=== PATIENT | female | born 1935 | race Caucasian/White ===

== ENCOUNTER 2022-04-16 17:00 | Emergency (ER) | payer MEDICARE, OTHER ==
[2022-04-16 18:12] LABS: #Eosinphils 0.2 thou/uL (0.0-0.7); #Lymphocytes 1.6 thou/uL (1.20-3.40); #Monocytes 0.8 thou/uL (0.11-0.59); #Neutrophils 7.4 thou/uL (1.40-6.50); %Basophils 0.1 % (0.0-1.0); %Eosinophils 2.3 % (0.0-10.0); %Lymphocytes 15.8 % (21.0-51.0); %Neutrophils 73.9 % (42.0-75.0); Hemoglobin 14.3 g/dL (12.0-16.0); Mean Corpuscular HGB CONC 33.1 g/dL (32.0-36.0); Mean Corpuscular Hemoglobin 31.4 pg (27.0-31.0); Mean Platelet Volume 8.7 fL (7.4-10.4); Platelet Count 155 thou/uL (130-400); Red Blood Cell (RBC) Count 4.55 mill/uL (4.20-5.40)
[2022-04-16 18:29] LABS: ALT (SGPT) 23 U/L (8-55); AST (SGOT) 23 U/L (5-34); Albumin 3.9 g/dL (3.4-4.8); Alkaline Phosphatase 71 U/L (40-110); Anion Gap 21 mmol/L (10-20); BUN (Urea Nitrogen) 35 mg/dL (9.8-20.1); Bilirubin, Total 0.5 mg/dL (0.2-1.2); CK (CPK) 83 U/L (29-168); Calc. Creatinine Clearance 0 mL/min (70-130); Calcium 8.8 mg/dL (7.8-10.44); Carbon Dioxide 16 mmol/L (23-31); Chloride 107 mmol/L (98-107); Estimated GFR 33; Globulin 2.7 g/dL (2.4-3.5); Glucose 192 mg/dL (83-110); Potassium 3.6 mmol/L (3.5-5.1); Protein, Total 6.6 g/dL (5.8-8.1); Sodium 140 mmol/L (136-145)
[2022-04-16 18:50] LABS: SARS-CoV-2 NAA Rapid Test Not Detected (NotDetected)
[2022-04-16 20:25] LABS: Bacteria/HPF 4+ HPF (None Seen); Bilirubin Negative (Negative); Blood, Urine 1+ (Negative); Clarity Turbid (Clear); Glucose, Urine (Dipstick) Normal (Negative); Ketone, Urine Negative (Negative); Leukocyte 500 Leu/uL (Negative); Nitrite Negative (Negative); Protein, Urine (Dipstick) Negative (Neg-Trace); Specific Gravity, Urine 1.016 (1.002-1.036); Squamous Epithelial None Seen HPF (0-3); Urobilinogen Normal mg/dL (Less than 2); WBC/HPF Greater than 50 HPF (0-3); pH, Urine 5.5 (5.0-9.0)
== END 2022-04-16 21:23 ==
LOC: ERS 17:00
DX: S01.01XA Laceration without foreign body of scalp, initial encounter (principal); N39.0 Urinary tract infection, site not specified; I10 Essential (primary) hypertension; W19.XXXA Unspecified fall, initial encounter; Z79.899 Other long term (current) drug therapy
CPT/HCPCS: 12002; 70450; 71045; 80053; 82550; 83605; 84484; 85025; 93005; 99285; U0002; 36415; 81003; 81015

== ENCOUNTER 2022-05-30 15:01 | Emergency (ER) | payer OTHER | END 2022-05-30 17:05 | LOC: ERS 15:01 | DX: S12.600A Unspecified displaced fracture of seventh cervical vertebra, initial encounter for closed fracture (principal); S06.5X0A Traumatic subdural hemorrhage without loss of consciousness, initial encounter; S40.812A Abrasion of left upper arm, initial encounter; I10 Essential (primary) hypertension; E03.9 Hypothyroidism, unspecified; G30.9 Alzheimer's disease, unspecified; F02.80 Dementia in other diseases classified elsewhere, unspecified severity, without behavioral disturbance, psychotic disturbance, mood disturbance, and anxiety; W19.XXXA Unspecified fall, initial encounter; Z95.5 Presence of coronary angioplasty implant and graft; Z79.899 Other long term (current) drug therapy | CPT/HCPCS: 70450; 72125 ==

== ENCOUNTER 2022-08-27 11:41 | Inpatient (IN) | payer OTHER, MEDICAID ==
[2022-08-27 12:20] LABS: #Monocytes 0.8 thou/uL (0.11-0.59); #Neutrophils 14.1 thou/uL (1.40-6.50); %Basophils 0.1 % (0.0-1.0); %Eosinophils 0.2 % (0.0-10.0); %Lymphocytes 6.2 % (21.0-51.0); %Monocytes 4.9 % (0.0-10.0); %Neutrophils 88.6 % (42.0-75.0); Hemoglobin 14.7 g/dL (12.0-16.0); Mean Corpuscular HGB CONC 32.9 g/dL (32.0-36.0); Mean Corpuscular Hemoglobin 30.9 pg (27.0-31.0); Mean Corpuscular Volume 93.9 fl (78.0-98.0); Mean Platelet Volume 8.9 fL (7.4-10.4); Platelet Count 200 10x3/uL (130-400); RBC Distribution Width 11.9 % (11.5-14.5); Red Blood Cell (RBC) Count 4.76 mill/uL (4.20-5.40); White Blood Cell (WBC) Count 15.9 10x3/uL (4.8-10.8)
[2022-08-27 12:36] LABS: ALT (SGPT) 32 U/L (8-55); AST (SGOT) 33 U/L (5-34); Albumin 4.3 g/dL (3.4-4.8); Alkaline Phosphatase 69 U/L (40-110); Anion Gap 15 mmol/L (10-20); BUN (Urea Nitrogen) 20 mg/dL (9.8-20.1); Bilirubin, Total 1.1 mg/dL (0.2-1.2); Calc. Creatinine Clearance 0 mL/min (70-130); Calcium 9.2 mg/dL (7.8-10.44); Carbon Dioxide 27 mmol/L (23-31); Chloride 104 mmol/L (98-107); Estimated GFR 59; Globulin 2.5 g/dL (2.4-3.5); Glucose 226 mg/dL (83-110); Potassium 3.1 mmol/L (3.5-5.1); Protein, Total 6.8 g/dL (5.8-8.1); Sodium 143 mmol/L (136-145)
[2022-08-27] MEDS ORDERED: Fentanyl 100 MCG/2 ML VIAL ONE (12:52)
[2022-08-27] MEDS ORDERED: Morphine 2 MG/ML VIAL SLOW IVP PRN (13:06)
[2022-08-27] MEDS ORDERED: Ipratropium/Albuterol 3 ML NEB NEB PRN (13:06)
[2022-08-27] MEDS ORDERED: Ondansetron PF 4 MG/2 ML Vial IVP PRN (13:06)
[2022-08-27] MEDS ORDERED: TETANUS, DIPHTHERIA TOX,ADULT (TDVAX) 0.5 ML VIAL IM ONE (13:06)
[2022-08-27] MEDS ORDERED: hydrALAZINE 20 MG/ML VIAL SLOW IVP PRN (13:06)
[2022-08-27] MEDS ORDERED: Sodium Chloride 0.9% 1,000 ML IV SCH (13:15)
[2022-08-27] MEDS: Sodium Chloride 0.9% 1,000 ML IV SCH (17:37)
[2022-08-27] MEDS: Potassium Chloride 10 MEQ in Premix Bag 1 BAG IVPB SCH ×4 (17:39→23:56)
[2022-08-27] MEDS: Acetaminophen 500 MG TAB PO SCH ×2 (17:43→23:56)
[2022-08-27 18:19] VITALS: BMI 20.5
[2022-08-27] MEDS: Famotidine 20 MG TAB PO SCH (20:11)
[2022-08-27] MEDS: Atorvastatin Calcium 40 MG TAB PO SCH (20:11)
[2022-08-27] MEDS: Famotidine/PF 20 mg/2ml Vial SLOW IVP SCH (20:11)
[2022-08-27] MEDS: Senokot S 8.6-50 MG TAB PO SCH (20:11)
[2022-08-27] MEDS ORDERED: Potassium Chloride 20 MEQ in Premix Bag 1 BAG IVPB SCH (20:30)
[2022-08-28] MEDS: Sodium Chloride 0.9% 1,000 ML IV SCH (02:54)
[2022-08-28] MEDS: Acetaminophen 500 MG TAB PO SCH ×4 (05:37→23:11)
[2022-08-28 07:31] LABS: SARS-CoV-2 NAA Rapid Test DETECTED (NotDetected)
[2022-08-28 07:38] LABS: #Lymphocytes 1.5 thou/uL (1.20-3.40); #Neutrophils 8.2 thou/uL (1.40-6.50); %Basophils 0.3 % (0.0-1.0); %Eosinophils 0.4 % (0.0-10.0); %Lymphocytes 13.7 % (21.0-51.0); %Monocytes 9.2 % (0.0-10.0); %Neutrophils 76.4 % (42.0-75.0); Hemoglobin 12.1 g/dL (12.0-16.0); Mean Corpuscular HGB CONC 33.9 g/dL (32.0-36.0); Mean Corpuscular Hemoglobin 31.9 pg (27.0-31.0); Mean Corpuscular Volume 94.1 fl (78.0-98.0); Mean Platelet Volume 9.1 fL (7.4-10.4); Platelet Count 182 10x3/uL (130-400); RBC Distribution Width 11.9 % (11.5-14.5); Red Blood Cell (RBC) Count 3.78 mill/uL (4.20-5.40); White Blood Cell (WBC) Count 10.8 10x3/uL (4.8-10.8)
[2022-08-28 07:56] LABS: Anion Gap 11 mmol/L (10-20); BUN (Urea Nitrogen) 12 mg/dL (9.8-20.1); Calc. Creatinine Clearance 49 mL/min (70-130); Calcium 8.4 mg/dL (7.8-10.44); Carbon Dioxide 25 mmol/L (23-31); Chloride 108 mmol/L (98-107); Estimated GFR 85; Glucose 105 mg/dL (83-110); Magnesium 1.6 mg/dL (1.6-2.6); Potassium 3.3 mmol/L (3.5-5.1); Sodium 141 mmol/L (136-145)
[2022-08-28] MEDS: Polyethylene Glycol 3350 17 GM Packet PO SCH (08:45)
[2022-08-28] MEDS: Oxybutynin ER 5 MG TAB PO SCH (08:45)
[2022-08-28] MEDS: Famotidine 20 MG TAB PO SCH ×2 (08:45→22:26)
[2022-08-28] MEDS: Senokot S 8.6-50 MG TAB PO SCH ×2 (08:45→22:26)
[2022-08-28] MEDS: Amlodipine 5 MG TAB PO SCH ×3 (08:47→11:24)
[2022-08-28] MEDS: Famotidine/PF 20 mg/2ml Vial SLOW IVP SCH ×2 (08:47→22:27)
[2022-08-28] MEDS ORDERED: Potassium Chloride 20 MEQ in Premix Bag 1 BAG IVPB SCH (11:30)
[2022-08-28] MEDS ORDERED: Magnesium Sulfate 4 GM, Potassium Chloride 40 MEQ in Sodium Chloride 0.9% 250 ML 250 ML IVPB SCH (12:15)
[2022-08-28] MEDS ORDERED: Bupivacaine HCl 0.5%/Epinephrine 1:200,000/PF 30 ml Vial ONE (12:24)
[2022-08-28] MEDS ORDERED: Sodium Chloride 0.9% 100 ML ONE (13:44)
[2022-08-28] MEDS ORDERED: CEFAZOLIN 2 GM VIAL ONE (13:44)
[2022-08-28] MEDS ORDERED: PROPOFOL 200 MG/20 ML VIAL ONE (14:00)
[2022-08-28] MEDS ORDERED: Rocuronium Bromide 10 MG/ML (10ML VIAL) ONE (14:00)
[2022-08-28] MEDS ORDERED: Lidocaine 1% PF 5 ML VIAL ONE (14:00)
[2022-08-28] MEDS ORDERED: Phenylephrine 10 MG/ML VIAL ONE (14:27)
[2022-08-28] MEDS ORDERED: Fentanyl 250 MCG/5 ML VIAL ONE (14:27)
[2022-08-28] MEDS ORDERED: SUGAMMADEX SODIUM 200 MG/2 ML VIAL ONE (15:14)
[2022-08-28] MEDS ORDERED: Fentanyl 100 MCG/2 ML VIAL ONE (15:33)
[2022-08-28] MEDS ORDERED: Promethazine HCl 25 MG/ML VIAL IM PRN (15:37)
[2022-08-28] MEDS ORDERED: Ondansetron HCl/PF 4 MG/2 ML Vial IVP PRN (15:37)
[2022-08-28] MEDS ORDERED: Promethazine HCl 25 MG/ML VIAL IVPB PRN (15:37)
[2022-08-28] MEDS: Atorvastatin Calcium 40 MG TAB PO SCH (22:26)
[2022-08-28] MEDS: CEFAZOLIN 2 GM in Sodium Chloride 0.9% 100 ML IVPB SCH (22:26)
[2022-08-29] MEDS: Acetaminophen 500 MG TAB PO SCH ×3 (05:11→19:23)
[2022-08-29] MEDS: CEFAZOLIN 2 GM in Sodium Chloride 0.9% 100 ML IVPB SCH (05:12)
[2022-08-29] MEDS: Polyethylene Glycol 3350 17 GM Packet PO SCH (09:04)
[2022-08-29] MEDS: Senokot S 8.6-50 MG TAB PO SCH ×2 (09:04→21:28)
[2022-08-29] MEDS: Famotidine 20 MG TAB PO SCH ×2 (09:04→21:27)
[2022-08-29] MEDS: Oxybutynin ER 5 MG TAB PO SCH (09:04)
[2022-08-29] MEDS: Famotidine/PF 20 mg/2ml Vial SLOW IVP SCH ×2 (09:05→21:28)
[2022-08-29] MEDS: Amlodipine 5 MG TAB PO SCH (09:05)
[2022-08-29] MEDS: Atorvastatin Calcium 40 MG TAB PO SCH (21:27)
[2022-08-30] MEDS: Acetaminophen 500 MG TAB PO SCH ×2 (01:38→05:51)
[2022-08-30 05:59] LABS: #Eosinphils 0.2 thou/uL (0.0-0.7); #Lymphocytes 1.4 thou/uL (1.20-3.40); #Monocytes 1.2 thou/uL (0.11-0.59); #Neutrophils 7.4 thou/uL (1.40-6.50); %Basophils 0.4 % (0.0-1.0); %Lymphocytes 13.6 % (21.0-51.0); %Monocytes 11.3 % (0.0-10.0); %Neutrophils 72.7 % (42.0-75.0); Hemoglobin 10.9 g/dL (12.0-16.0); Mean Corpuscular HGB CONC 32.4 g/dL (32.0-36.0); Mean Corpuscular Hemoglobin 30.7 pg (27.0-31.0); Mean Corpuscular Volume 94.8 fl (78.0-98.0); Mean Platelet Volume 9.6 fL (7.4-10.4); Platelet Count 150 10x3/uL (130-400); Red Blood Cell (RBC) Count 3.56 mill/uL (4.20-5.40); White Blood Cell (WBC) Count 10.2 10x3/uL (4.8-10.8)
[2022-08-30 06:27] LABS: Anion Gap 12 mmol/L (10-20); BUN (Urea Nitrogen) 10 mg/dL (9.8-20.1); Calc. Creatinine Clearance 53 mL/min (70-130); Calcium 8.3 mg/dL (7.8-10.44); Carbon Dioxide 25 mmol/L (23-31); Chloride 106 mmol/L (98-107); Estimated GFR 87; Glucose 95 mg/dL (83-110); Phosphorus 2.4 mg/dL (2.3-4.7); Potassium 3.2 mmol/L (3.5-5.1); Sodium 140 mmol/L (136-145)
[2022-08-30] MEDS ORDERED: Ibuprofen 800 MG TAB PO PRN (09:06)
[2022-08-30] MEDS ORDERED: Acetaminophen/Codeine 30-300mg Tablet PO PRN (09:06)
[2022-08-30] MEDS ORDERED: PHOS-NAK 1 PKT PACK PO SCH (09:15)
[2022-08-30] MEDS ORDERED: Potassium Chloride 20 MEQ TAB PO SCH (09:15)
[2022-08-30] MEDS: Aspirin 81 mg Enteric Coated Tablet PO SCH ×2 (09:46→20:22)
[2022-08-30] MEDS: Polyethylene Glycol 3350 17 GM Packet PO SCH (09:47)
[2022-08-30] MEDS: Amlodipine 5 MG TAB PO SCH (09:47)
[2022-08-30] MEDS: Oxybutynin ER 5 MG TAB PO SCH (09:47)
[2022-08-30] MEDS: Famotidine 20 MG TAB PO SCH ×2 (09:48→20:22)
[2022-08-30] MEDS: Senokot S 8.6-50 MG TAB PO SCH ×2 (09:48→20:22)
[2022-08-30] MEDS: Famotidine/PF 20 mg/2ml Vial SLOW IVP SCH (10:15)
[2022-08-30] MEDS: Acetaminophen 325 MG TAB PO SCH ×2 (11:32→17:40)
[2022-08-30] MEDS: Atorvastatin Calcium 40 MG TAB PO SCH (20:22)
[2022-08-31] MEDS: Acetaminophen 325 MG TAB PO SCH ×4 (00:14→17:39)
[2022-08-31] MEDS: Levothyroxine Sodium 75 MCG TAB PO SCH (05:30)
[2022-08-31 06:44] LABS: #Eosinphils 0.4 thou/uL (0.0-0.7); #Lymphocytes 1.4 thou/uL (1.20-3.40); #Monocytes 0.8 thou/uL (0.11-0.59); #Neutrophils 6.8 thou/uL (1.40-6.50); %Basophils 0.5 % (0.0-1.0); %Monocytes 8.8 % (0.0-10.0); %Neutrophils 71.6 % (42.0-75.0); Hemoglobin 10.4 g/dL (12.0-16.0); Mean Corpuscular HGB CONC 33.1 g/dL (32.0-36.0); Mean Corpuscular Hemoglobin 31.2 pg (27.0-31.0); Mean Corpuscular Volume 94.2 fl (78.0-98.0); Mean Platelet Volume 9.4 fL (7.4-10.4); Platelet Count 172 10x3/uL (130-400); RBC Distribution Width 11.9 % (11.5-14.5); Red Blood Cell (RBC) Count 3.34 mill/uL (4.20-5.40); White Blood Cell (WBC) Count 9.4 10x3/uL (4.8-10.8)
[2022-08-31 07:10] LABS: Anion Gap 11 mmol/L (10-20); BUN (Urea Nitrogen) 16 mg/dL (9.8-20.1); Calc. Creatinine Clearance 49 mL/min (70-130); Calcium 8.4 mg/dL (7.8-10.44); Carbon Dioxide 25 mmol/L (23-31); Chloride 105 mmol/L (98-107); Estimated GFR 85; Glucose 87 mg/dL (83-110); Magnesium 2.1 mg/dL (1.6-2.6); Phosphorus 3.3 mg/dL (2.3-4.7); Sodium 137 mmol/L (136-145)
[2022-08-31] MEDS: Senokot S 8.6-50 MG TAB PO SCH ×2 (08:37→21:27)
[2022-08-31] MEDS: Famotidine 20 MG TAB PO SCH ×2 (08:37→21:27)
[2022-08-31] MEDS: Aspirin 81 mg Enteric Coated Tablet PO SCH ×2 (08:37→21:27)
[2022-08-31] MEDS: Oxybutynin ER 5 MG TAB PO SCH (08:37)
[2022-08-31] MEDS: Amlodipine 5 MG TAB PO SCH (08:38)
[2022-08-31] MEDS: Polyethylene Glycol 3350 17 GM Packet PO SCH (08:38)
[2022-08-31] MEDS: Atorvastatin Calcium 40 MG TAB PO SCH (21:27)
[2022-09-01] MEDS: Acetaminophen 325 MG TAB PO SCH ×3 (00:23→11:06)
[2022-09-01] MEDS: Levothyroxine Sodium 75 MCG TAB PO SCH (05:17)
[2022-09-01] MEDS: Oxybutynin ER 5 MG TAB PO SCH (07:51)
[2022-09-01] MEDS: Aspirin 81 mg Enteric Coated Tablet PO SCH (07:51)
[2022-09-01] MEDS: Senokot S 8.6-50 MG TAB PO SCH (07:51)
[2022-09-01] MEDS: Famotidine 20 MG TAB PO SCH (07:51)
[2022-09-01] MEDS: Amlodipine 5 MG TAB PO SCH (07:52)
[2022-09-01] MEDS: Polyethylene Glycol 3350 17 GM Packet PO SCH (07:53)
[2022-09-01 12:09] VITALS: BP 120/80; TEMP 97.8
== END 2022-09-01 13:10 | DRG 480 ==
LOC: ERS 11:41 → SURG A 14:52
PROVIDERS: ADMIT Emergency Medicine; ATTEND Surgery
PROC: 0QS606Z Reposition Right Upper Femur with Intramedullary Internal Fixation Device, Open Approach (ICD-10-PCS; principal; 2022-08-28)
PROC: 3E033XZ Introduction of Vasopressor into Peripheral Vein, Percutaneous Approach (ICD-10-PCS; 2022-08-28)
DX: S72.141A Displaced intertrochanteric fracture of right femur, initial encounter for closed fracture (principal); U07.1 COVID-19; S02.119A Unspecified fracture of occiput, initial encounter for closed fracture; G30.9 Alzheimer's disease, unspecified; F02.80 Dementia in other diseases classified elsewhere, unspecified severity, without behavioral disturbance, psychotic disturbance, mood disturbance, and anxiety; E87.6 Hypokalemia; D72.829 Elevated white blood cell count, unspecified; E83.42 Hypomagnesemia; I25.10 Atherosclerotic heart disease of native coronary artery without angina pectoris; I10 Essential (primary) hypertension; Z95.2 Presence of prosthetic heart valve; Z98.890 Other specified postprocedural states; Z79.899 Other long term (current) drug therapy; Z79.82 Long term (current) use of aspirin; Z95.1 Presence of aortocoronary bypass graft; Z95.5 Presence of coronary angioplasty implant and graft; W07.XXXA Fall from chair, initial encounter
CPT/HCPCS: 36415; 70450; 71045; 72125; 80048; 80053; 82550; 83735; 84100; 84484; 85025; 86850; 86900; 86901; 93005; 96374; C1713; G0390; J0360; J2370; J2704; J3010; J3475; J3480; J3490; J7050; S0028; U0002